=== PATIENT | female | born 1950 | race Caucasian/White ===

== ENCOUNTER 2019-04-14 13:16 | Emergency (ER) | payer MEDICARE, SELFPAY ==
[2019-04-14 13:33] VITALS: BP 117/87; PULSE 112; RESP 18; TEMP 37.2; O2SAT 98
--- NOTE | 2019-04-14 13:46 | ED.BACK ---
HPI - Back Pain/Injury General Chief Complaint: Back Pain/Injury Stated Complaint: back pain Source: patient Mode of arrival: ambulatory Limitations: no limitations History of Present Illness HPI Narrative: This is a 68-year-old female with chronic back pain currently on hydrocodone which offers her minimal relief, has some left lower lumbar back pain with some muscle tightness and tenderness with palpation on left lower lumbar spinal area with no dysuria no abdominal pain no nausea vomiting no diarrhea constipation no known injuries. MD elicited complaint: back pain Pertinent past history: prior back pain Onset (ago): hour(s) Timing: constant Pain scale (0-10): 6 Similar Symptoms Previously: Yes Quality: aching and spasming Location: lumbar spine and left lower back Radiation: none Exacerbating factors: movement Relieving factors: immobilization Context: while lifting, turning/twisting and bending Associated symptoms: denies other symptoms Related Data Home Medications Medication Instructions Recorded Confirmed alprazolam 0.5 mg PO BID 12/27/18 04/14/19 atorvastatin 20 mg PO DAILY 12/27/18 04/14/19 hydrocodone-acetaminophen 10.325 tablet PO QID 12/27/18 04/14/19 metoprolol tartrate 25 mg PO DAILY 12/27/18 04/14/19 aspirin [Aspir-81] 81 mg PO DAILY 04/14/19 04/14/19 Allergies Allergy/AdvReac Type Severity Reaction Status Date / Time No Known Allergies Allergy Verified 12/27/18 16:59 Review of Systems Review of Systems: All systems reviewed & are unremarkable except as noted in HPI and below PMFSH Past Medical History Medical History Anxiety HTN (hypertension) Surgical History Surgical History H/O: hysterectomy Social History Social History Smoking packs per day: 1 Smoking cigarettes per day: 20.0 Years smoked: 50 Smoking pack-years: 50.00 Exam Const: General: no acute distress and alert Orientation/consciousness: patient oriented x3 HENMT: Head: normal to inspection Eyes: Conjunctivae: conjunctivae normal Pupils: Equal, round and reactive pupils present Neck: Neck: normal visual inspection Chest: Chest palpation & inspection: normal inspection of the chest Resp: Effort & Inspection: normal respiratory effort Cardio: Rhythm: regular rhythm : General: Yes no CVA tenderness Skin: General skin exam: normal color Neuro: General: patient oriented x3 Psych: Mental Status: mental status grossly normal Course Vital Signs Vital signs: Vital Signs Temperature 37.2 C 04/14/19 13:33 Pulse Rate 112 H 04/14/19 13:33 Respiratory Rate 18 04/14/19 13:33 Blood Pressure 117/87 04/14/19 13:33 Pulse Oximetry 98 04/14/19 13:33 Temperature 37.2 C 04/14/19 13:33 Pulse Rate 112 H 04/14/19 13:33 Respiratory Rate 18 04/14/19 13:33 Blood Pressure 117/87 04/14/19 13:33 Pulse Oximetry 98 04/14/19 13:33 Discharge Plan Discharge Clinical Impression: Strain of lumbar region Qualifiers: Encounter type: initial encounter Qualified Code(s): S39.012A - Strain of muscle, fascia and tendon of lower back, initial encounter Condition: Stable Instructions: Acute Low Back Pain (ED), Back Pain (ED) Additional Instructions: Take medicine as prescribed and if symptoms persist for more than a week should follow with primary care physician for further evaluation and treatment. Prescriptions: New prednisone 20 mg tablet 20 mg PO DAILY Qty: 7 RF: 0 cyclobenzaprine 5 mg tablet 5 mg PO TID Qty: 21 RF: 0 No Action atorvastatin 20 mg tablet 20 mg PO DAILY RF: 0 hydrocodone-acetaminophen 10-325 mg tablet 10.325 tablet PO QID RF: 0 alprazolam 0.5 mg tablet 0.5 mg PO BID RF: 0 metoprolol tartrate 25 mg tablet 25 mg PO DAILY RF: 0 aspirin [Aspir-81] 81 m
[2019-04-14] MEDS: KETOROLAC (*BKC) 60 MG/2 ML VIAL IM (13:55)
== END 2019-04-14 14:20 | disposition home or self-care (01) ==
PROVIDERS: Emergency Provider Emergency Medicine; PCP Internal Medicine
DX: S39.012A Strain of muscle, fascia and tendon of lower back, initial encounter (principal); I10 Essential (primary) hypertension; F17.200 Nicotine dependence, unspecified, uncomplicated
CPT/HCPCS: 96372; 99283; J1885

== ENCOUNTER 2019-06-20 08:41 | Outpatient (CLI) | payer MEDICARE, SELFPAY ==
--- NOTE | ~2019-06-20 | US_ITS ---
EXAMINATION: US retroperitoneal comp DATE: 06/20/2019 09:16 INDICATION: Worsening renal function TECHNIQUE: Multiple grayscale and Doppler ultrasound images of the kidneys were obtained. COMPARISON: CT selected 15 port two FINDINGS: The right kidney measures 8.3 x 4.4 x 3.7 cm. The left kidney measures 8.9 x 4.9 x 4.5 cm a nd contains cysts measuring up to 6 mm. The kidneys demonstrate normal parenchymal echogenicity. Ther e is no hydronephrosis. A small diverticulum is noted at the right posterolateral aspect of the bladd er. The bladder is otherwise normal. IMPRESSION: 1. Mild renal atrophy. 2. Small bladder diverticulum. Reviewed, dictated and finalized at location A.
== END 2019-06-20 08:42 | disposition home or self-care (01) ==
LOC: CHSIMG 08:45
PROVIDERS: PCP Internal Medicine; Visit Provider Internal Medicine
DX: R94.4 Abnormal results of kidney function studies (principal)
CPT/HCPCS: 76770

== ENCOUNTER 2020-10-22 15:33 | Outpatient (CLI) | payer MEDICARE, SELFPAY ==
[2020-10-22 16:31] LABS: SARS-CoV-2 RNA PCR Positive (Negative)
== END 2020-10-22 15:34 | disposition home or self-care (01) ==
LOC: CHSLAB 15:37
PROVIDERS: PCP Internal Medicine; Visit Provider Internal Medicine
DX: U07.1 COVID-19 (principal)
CPT/HCPCS: C9803; U0003; U0005

== ENCOUNTER 2021-08-25 17:18 | Emergency (ER) | payer MEDICARE, SELFPAY ==
--- NOTE | ~2021-08-25 | XR_ITS ---
EXAM: XR wrist LT min 3V DATE: 08/25/2021 18:42 HISTORY: left wrist pain . COMPARISON: None available. FINDINGS: Decreased mineralization. No fracture or dislocation. No lytic or blastic lesion. Scattere d mild degenerative change. No erosion or periosteal change. Soft tissues within normal limits. IMPRESSION: No acute osseous finding in the left wrist. Reviewed, dictated and finalized at location K.
--- NOTE | ~2021-08-25 | CT_ITS ---
CT OF PELVIS EXAMINATION: CT pelvis wo con DATE: 08/25/2021 18:52 INDICATION: Fall, left hip pain. TECHNIQUE: Computed tomography (CT) of the pelvis was performed without intravenous contrast. Automat ed exposure control and iterative reconstruction technique were employed. The dose-length product was 168.39 mGy-cm. COMPARISON: None FINDINGS: Limitations: None Bones: Osteopenia. No osseous fracture. No dislocation. There are no erosive or destructive bony lesi ons. Severe degenerative disc disease and multilevel neural foraminal narrowing in the lower lumbar s pine. Soft Tissues:Atherosclerotic calcifications. The uterus is absent. Fluid: No significant fluid within the joint capsule or surrounding bursal spaces. IMPRESSION: No acute osseous finding in the pelvis. Reviewed, dictated and finalized at location K.
--- NOTE | ~2021-08-25 | XR_ITS ---
EXAM: XR knee LT 3V DATE: 08/25/2021 18:42 HISTORY: fall, knee pain . COMPARISON: 11/22/2009. FINDINGS: Decreased mineralization. No fracture or dislocation. No lytic or blastic lesion. Mild tri compartmental osteoarthritis. No erosion or periosteal change. Soft tissues within normal limits. Sma ll knee joint effusion. IMPRESSION: No acute osseous finding in the left knee. Reviewed, dictated and finalized at location K.
[2021-08-25 17:25] VITALS: BP 132/84; PULSE 74; RESP 20; TEMP 36.6; O2SAT 97
[2021-08-25] MEDS: KETOROLAC 30 MG/ML VIAL (*BKC) 15 MG IM (19:02)
--- NOTE | 2021-08-25 19:09 | ED.LOWEXIN ---
HPI - Extremity Injury (Lower) General Chief Complaint: Extremity Injury, Lower Stated Complaint: LT knee injury Time Seen by Provider: 08/25/21 17:22 Source: patient and RN notes reviewed Mode of arrival: ambulatory Limitations: no limitations History of Present Illness complaint: knee injury and other (left wrist pain) Injury: Left: knee Type of Injury: other (fall) Place: street/outdoors Severity: mild Relieving factors: nothing Exacerbating factors: weight bearing and movement Context: fall Associated symptoms: ambulatory Other symptoms: none Related Data Home Medications Medication Instructions Recorded Confirmed alprazolam 0.5 mg tablet 0.5 mg PO BID 12/27/18 08/25/21 atorvastatin 20 mg tablet 20 mg PO DAILY 12/27/18 08/25/21 hydrocodone 10 mg-acetaminophen 10 - 325 tablet PO QID 12/27/18 04/14/19 325 mg tablet metoprolol tartrate 25 mg tablet 25 mg PO DAILY 12/27/18 08/25/21 aspirin 81 mg tablet,delayed 81 mg PO DAILY 04/14/19 08/25/21 release (Aspir-) Allergies Allergy/AdvReac Type Severity Reaction Status Date / Time No Known Allergies Allergy Verified 12/27/18 16:59 Review of Systems Review of Systems: All systems reviewed & are unremarkable except as noted in HPI and below Constitutional: Constitutional: Reports no additional constitutional complaints Eyes: Eyes: Reports no additional eye complaints ENT: Reports system reviewed and no additional complaints, except as documented Cardiovascular: Cardiovascular: Reports no additional cardiovascular complaints Respiratory: Respiratory: Reports no additional respiratory complaints Gastrointestinal: Gastrointestinal: Reports no additional gastrointestinal complaints Genitourinary: Genitourinary: Reports no additional female genitourinary complaints Musculoskeletal: Musculoskeletal: Reports no additional musculoskeletal complaints and Reports arthralgias Integumentary/Breasts: Skin/Breast: Reports system reviewed and no additional complaints, except as docu Neurologic: Reports system reviewed and no additional complaints, except as documented Psychiatric: Psychiatric: Reports no additional psychiatric complaints Endocrine: Endocrine: Reports no additional endocrine complaints Hematologic/Lymphatic: Hematologic/Lymphatic: Reports no additional hematologic/lymphatic complaints Allergic/Immunologic: Allergic/Immunologic: Reports no additional allergic/immunologic complaints PMFSH Past Medical History Medical History Anxiety HTN (hypertension) Knee contusion Left wrist sprain Surgical History Surgical History H/O: hysterectomy Social History Social History Smoking packs per day: 1 Smoking cigarettes per day: 20.0 Years smoked: 50 Smoking pack-years: 50.00 Exam Const: General: healthy appearing and no acute distress Nutritional Appearance: well nourished Orientation/consciousness: patient oriented x3 Limitations: no limitations HENMT: Head: normal to inspection Ears: external ears normal, TM's normal bilaterally and EAC's normal General nose exam: Normal external nose present and Normal nares present Face and sinus: normal facial exam and sinuses nontender Mouth: Yes Normal oral and palatal mucosa present and Yes moist mucous membranes Teeth and gingiva: dentition normal Throat: posterior oropharynx normal Eyes: Conjunctivae: conjunctivae normal Pupils: Equal, round and reactive pupils present EOM: EOMs intact bilaterally Neck: Neck: normal visual inspection, no lymphadenopathy and no meningeal signs Chest: Chest palpation & inspection: normal inspection of the chest Resp: Effort & Inspection: normal respiratory effort Auscultation: clear to auscultation bilaterally Cardio: Rate: regular rate Rhythm: regular rhythm GI: GI Palp: Yes So
--- NOTE | 2021-08-25 19:12 | PC.NURSE ---
report to GENESIS rawls. no questions. awaiting xray reports.
[2021-08-25 19:26] VITALS: BP 125/86; PULSE 78; RESP 20; TEMP 36.2; O2SAT 98
--- NOTE | 2021-08-25 19:36 | PC.NURSE ---
pt declined wrist ekaterina wrap
== END 2021-08-25 19:22 | disposition home or self-care (01) ==
PROVIDERS: Emergency Provider Emergency Medicine; PCP Internal Medicine
DX: S80.02XA Contusion of left knee, initial encounter (principal); S63.502A Unspecified sprain of left wrist, initial encounter; I10 Essential (primary) hypertension; F41.9 Anxiety disorder, unspecified; F17.210 Nicotine dependence, cigarettes, uncomplicated; W19.XXXA Unspecified fall, initial encounter
CPT/HCPCS: 72192; 73110; 73562; 96372; 99284; J1885

== ENCOUNTER 2021-09-19 14:24 | Outpatient (CLI) | payer MEDICARE, SELFPAY ==
[2021-09-19 14:38] LABS: Add Urine Microscopic? YES; Appearance Urine Clear (Clear); Bilirubin Urine Negative (Negative); Blood Urine 1+ (Negative); Color Urine Light Yellow (Yellow); Glucose Urine UA Negative (Negative); Ketones Urine Negative (Negative); Leukocyte Esterase Ur Trace (Negative); Nitrate Urine Negative (Negative); Protein Urine Negative (Negative); Specific Grav Ur <= 1.005 (1.010-1.020); Urobilinogen Urine 0.2 mg/dL (0.2-1.0)
[2021-09-19 14:47] LABS: Bacteria Urine 1+ /hpf; RBC Urine 0-2 /hpf (0-2); Squamous Epithelial Cell Urine Few /hpf (Few)
== END 2021-09-19 14:25 | disposition home or self-care (01) ==
PROVIDERS: PCP Internal Medicine; Visit Provider Internal Medicine
DX: N39.0 Urinary tract infection, site not specified (principal)
CPT/HCPCS: 81001; 87077; 87086; 87088; 87186

== ENCOUNTER 2021-09-24 12:24 | Outpatient (CLI) | payer MEDICARE, SELFPAY ==
--- NOTE | ~2021-09-24 | MM_ITS ---
EXAMINATION: MM screening javier BI w yaquelin HISTORY: Screening mammogram TECHNIQUE: Craniocaudal and mediolateral oblique 3-D tomosynthesis images were obtained and synthetic 2-D images were generated. CAD analysis was submitted and interpreted. COMPARISON: 11/22/2013 bilateral screening mammogram examination BREAST PARENCHYMAL COMPOSITION: There are scattered areas of fibroglandular density. FINDINGS: Occasional benign calcifications. There is no evidence of suspicious mass, calcification, o r architectural distortion to suggest malignancy in either breast. There has been no suspicious inter anette change. IMPRESSION: 1. No mammographic evidence of malignancy. 2. Recommend routine screening mammography in one year. BI-RADS Category 2: Benign finding(s). Reviewed, dictated and finalized at location A.
--- NOTE | ~2021-09-24 | DEXA_ITS ---
Bone Density Report Name: SATHISH KING Age: 71 Sex: Female Ethnicity: White Date of : 1950 Indication: postmenopausal; screening for osteoporosis; height loss; prior fracture; hysterectomy; rheumatoid arthritis; Referring Provider: Perry Ybarra Study: Bone densitometry was performed. Exam Date: September 24, 2021 Accession number: [id number] Bone Density: Region BMD T-score Z-score Classification AP Spine(L1, L2, L3) 0.852 -1.5 0.7 Osteopenia Femoral Neck (Left) 0.639 -1.9 0.0 Osteopenia Total Hip (Left) 0.718 -1.8 -0.2 Osteopenia Femoral Neck (Right) 0.632 -2.0 0.0 Osteopenia Total Hip (Right) 0.652 -2.4 -0.8 Osteopenia Femoral Neck Mean 0.635 -1.9 0.0 Osteopenia Total Hip Mean 0.685 -2.1 -0.5 Osteopenia World Health Organization criteria for BMD impression classify patients as: Normal (T-score at or above -1.0), Osteopenia (T-score between -1.0 and -2.5), or Osteoporosis (T-score at or below -2.5). 10-year Fracture Risk(1): Major Osteoporotic Fracture 24% Hip Fracture 8.4% Reported Risk Factors: [place] (), Neck BMD=0.632, BMI=22.3, previous fracture, smoking, rheumatoid arthritis (1) FRAX(R) Version 3.08. Fracture probability calculated for an untreated patient. Fracture probability may be lower if the patient has received treatment. Clinical Information Provided by Patient: Has had a low trauma fracture Smokes Has rheumatoid arthritis Has used the following medications: Vitamin D, Calcium Has the following medical conditions: Hysterectomy Patient maximum height was 67 Menopause Age: 36 Drinks caffeinated beverages Onset of menses at age 16 Number of children 2 Impression: The patient has low bone mass, based on the Right Total Hip T-score. The patient has risk factors, including: smoking, previous fracture. Discussion: BONE DENSITY IS LOW AT ONE OR MORE SKELETAL SITES. This patient's lowest T-score is low at one or more skeletal sites. It meets the World Health Organization's (WHO) criteria for ?low bone mass? (T-score between -1.0 and -2.5). The patient's 10-year risk of fracture as calculated by FRAX is less than the threshold where pharmacological therapy is recommended by the National Osteoporosis Foundation (NOF). However, all treatment decisions require clinical judgment and consideration of individual patient factors, including patient preferences, comorbidities, previous drug use, risk factors not captured in the FRAX model (e.g., frailty, falls, vitamin D deficiency, increased bone turnover, interval significant decline in bone density) and possible under or overestimation of fracture risk by FRAX. The patient should follow a healthful lifestyle (good nutrition with adequate calcium and vitamin D, and appropriate weight-bearing exe
== END 2021-09-24 12:25 | disposition home or self-care (01) ==
LOC: CHSIMG 12:26
PROVIDERS: PCP Internal Medicine; Visit Provider Internal Medicine
DX: M81.0 Age-related osteoporosis without current pathological fracture (principal); Z12.31 Encounter for screening mammogram for malignant neoplasm of breast
CPT/HCPCS: 77063; 77067; 77080

== ENCOUNTER 2022-06-23 14:18 | Outpatient (CLI) | payer MEDICARE, SELFPAY ==
--- NOTE | ~2022-06-23 | CT_ITS ---
EXAMINATION: CT BRAIN W/O DATE: 06/23/2022 14:40 INDICATION: Left frontal lobe headache TECHNIQUE: Computed tomography (CT) of the head was performed without intravenous contrast. The dose- length product was 605.33 mGy-cm. CT dated 12/27/2018 COMPARISON: No prior studies for comparison. FINDINGS: Normal brain parenchymal volume for age. Normal montez-white differentiation. No acute intrac ranial hemorrhage, infarction, mass or mass effect. No ventriculomegaly or midline shift. Midline sagittal images demonstrate a normal corpus callosum, c raniovertebral junction and sella turcica. Basilar cisterns are patent. There is mucosal thickening of the left maxillary, sphenoid and left ethmoid sinus. Mastoids are pneu matized. No depressed skull fractures. IMPRESSION: 1. No acute intracranial abnormality. 2: Moderate sinusitis. Reviewed, dictated and finalized at location L.
== END 2022-06-23 14:19 | disposition home or self-care (01) ==
LOC: CHSIMG 14:22
PROVIDERS: PCP Internal Medicine; Visit Provider Nurse Practitioner Family
DX: H53.8 Other visual disturbances (principal); R51.9 Headache, unspecified; J32.9 Chronic sinusitis, unspecified
CPT/HCPCS: 70450

== ENCOUNTER 2022-07-06 14:02 | Emergency (ER) | payer MEDICARE, SELFPAY ==
--- NOTE | ~2022-07-06 | CT_ITS ---
EXAMINATION: CT lumbar spine wo con DATE: 07/06/2022 14:41 INDICATION: 3 days of low back pain and sciatica TECHNIQUE: Computed tomography (CT) of the lumbar spine was performed without intravenous contrast. A utomated exposure control and iterative reconstruction technique were employed. The dose-length produ ct was 700.43 mGy-cm. COMPARISON: MRI dated 10/25/2010 FINDINGS: 15 degrees lumbar levoscoliosis. Sagittal alignment is normal. Chronic compression fracture with 20% anterior vertebral body height loss and superimposed endplate Schmorl's node at L2. Additional unchan ged mild compression fracture with 10% right anterior vertebral body height loss at L3. Small Schmorl 's node along the inferior endplate of T11. Chronic L3 bone island. Mild disc height loss at T10-T11 through T12-L1 and mild left-sided disc height loss at L1-L2. Schmorl's node. Mild to moderate right- sided predominant disc height loss at T12-L3 and L3-L4. Moderate disc height loss at L4-L5, moderate to severe left-sided predominant disc height loss at L5-S1. Paravertebral soft tissues are unremarkab le. The following disc levels are specifically discussed: T11-T12: Disc is mildly bulging with superimposed chronic left foraminal zone disc extrusion with dis c material extending 5 mm cephalad to the level of the inferior endplate of T11. There is mild bilate ral facet joint osteoarthritis. There is mild left neural foraminal stenosis. There is mild central c anal stenosis. T12-L1: The disc does not extend beyond the endplate margin. There is mild bilateral facet joint oste oarthritis. There is no neural foraminal stenosis. There is no central canal stenosis. L1-L2: Disc is bulging. There is mild left and minimal right facet joint osteoarthritis. There is mil d bilateral neural foraminal stenosis. There is mild central canal stenosis. L2-L3: Disc is bulging. There is minimal bilateral facet joint osteoarthritis. There is mild bilatera l neural foraminal stenosis. There is mild to moderate central canal stenosis. L3-L4: Disc is bulging. There is mild bilateral facet joint osteoarthritis. There is mild bilateral n eural foraminal stenosis. There is mild central canal stenosis. L4-L5: Disc is bulging. There is mild right and moderate left facet joint osteoarthritis. There is le ft and mild to moderate right neural foraminal stenosis. There is mild to moderate central canal sten osis with prior left posterior decompression with left hemilaminotomy. L5-S1: Disc is bulging. There is mild right and moderate left facet joint osteoarthritis. There is mo derate to severe left neural foraminal stenosis. There is mild central canal stenosis with additional prior left posterior decompression with left hemilaminotomy. IMPRESSION: 1. 15 degrees lumbar levoscoliosis with moderate spondylosis and change of likely prior left L4-L5 an d L5-S1 hemilaminotomies. Groin 2. Chronic L3 and L4 compression fractures. No acute osseous abnormality. Reviewed, dictated and finalized at location A. IMPRESSION: 1. 15 degrees lumbar levoscoliosis with moderate spondylosis and change of like ly prior left L4-L5 and L5-S1 hemilaminotomies. Groin 2. Chronic L3 and L4 compression fractures. No acute osseous abnormality.
[2022-07-06 14:02] VITALS: BP 137/87; PULSE 79; RESP 20; TEMP 36.7; O2SAT 99
[2022-07-06 14:22] LABS: Appearance Urine Clear (Clear); Bilirubin Urine Negative (Negative); Blood Urine 1+ (Negative); Color Urine Light Yellow (Yellow); Glucose Urine UA Negative (Negative); Ketones Urine Negative (Negative); Leukocyte Esterase Ur 2+ (Negative); Nitrate Urine Negative (Negative); Protein Urine Negative (Negative); Specific Grav Ur <= 1.005 (1.010-1.020); Urobilinogen Urine 0.2 mg/dL (0.2-1.0)
--- NOTE | 2022-07-06 14:23 | ED.GENADULT ---
HPI - General Adult General Chief complaint: Back Pain/Injury Stated complaint: back pain Time Seen by Provider: 07/06/22 14:13 History of Present Illness HPI narrative: An is a 72F with a PMH of chronic back pain s/p multiple surgeries that presented to the ED with worsening back pain. It gradually came on yesterday and has become much worse. There was no fall or trauma. There is no paralysis, numbness, or loss of bowel/bladder control. The pain is in her bilateral low back and radiates down her left leg. Related Data Home Medications Medication Instructions Recorded Confirmed alprazolam 0.5 mg tablet 0.5 mg PO BID 12/27/18 07/06/22 atorvastatin 20 mg tablet 20 mg PO DAILY 12/27/18 07/06/22 hydrocodone 10 mg-acetaminophen 10 - 325 tablet PO QID 12/27/18 07/06/22 325 mg tablet metoprolol tartrate 25 mg tablet 25 mg PO DAILY 12/27/18 07/06/22 aspirin 81 mg tablet,delayed 81 mg PO DAILY 04/14/19 07/06/22 release (Aspir-) alendronate 70 mg tablet 70 mg PO WEEKLY 07/06/22 07/06/22 Allergies Allergy/AdvReac Type Severity Reaction Status Date / Time No Known Allergies Allergy Verified 07/06/22 14:05 Review of Systems Review of Systems: All systems reviewed & are unremarkable except as noted in HPI and below PMFSH Past Medical History Medical History Anxiety HTN (hypertension) Knee contusion Left wrist sprain Surgical History Surgical History H/O: hysterectomy Social History Social History Smoking packs per day: 1 Smoking cigarettes per day: 20.0 Years smoked: 50 Smoking pack-years: 50.00 Exam Const: General: healthy appearing and no acute distress Nutritional Appearance: well nourished Orientation/consciousness: patient oriented x3 HENMT: Head: normal to inspection Ears: external ears normal Face/Nose/Sinus: Normal external nose present Eyes: Conjunctivae: conjunctivae normal Pupils: Equal, round and reactive pupils present EOM: EOMs intact bilaterally Neck: Neck: normal visual inspection Chest: Chest palpation & inspection: normal inspection of the chest Resp: Effort & Inspection: normal respiratory effort Cardio: Rate: regular rate GI: Inspection: non-distended Back/Spine/Pelvis: Other: midline lumbar scar. No TTP or midline tenderness Skin: General skin exam: normal color Rashes: no rashes Neuro: General: patient oriented x3 and moves all extremities Cranial nerves: Yes Nystagmus not present Other: 5/5 strength throughout the lower extremities Extrem: General: normal to inspection Psych: Mental Status: mental status grossly normal Course Course Emergency Course: EXAMINATION: CT lumbar spine wo con DATE: 07/06/2022 14:41 INDICATION: 3 days of low back pain and sciatica TECHNIQUE: Computed tomography (CT) of the lumbar spine was performed without intravenous contrast. Automated exposure control and iterative reconstruction technique were employed. The dose-length product was 700.43 mGy-cm. COMPARISON: MRI dated 10/25/2010 FINDINGS: 15 degrees lumbar levoscoliosis. Sagittal alignment is normal. Chronic compression fracture with 20% anterior vertebral body height loss and superimposed endplate Schmorl's node at L2. Additional unchanged mild compression fracture with 10% right anterior vertebral body height loss at L3. Small Schmorl's node along the inferior endplate of T11. Chronic L3 bone island. Mild disc height loss at T10-T11 through T12-L1 and mild left-sided disc height loss at L1-L2. Schmorl's node. Mild to moderate right-sided predominant disc height loss at T12-L3 and L3-L4. Moderate disc height loss at L4-L5, moderate to severe left-sided predominant disc height loss at L5-S1. Paravertebral soft tissues are unremarkable. The following disc levels are specifically discussed:
[2022-07-06 14:27] LABS: Add Urine Microscopic? YES; Squamous Epithelial Cell Urine Few /hpf (Few)
[2022-07-06 14:28] LABS: Bacteria Urine 1+ /hpf
[2022-07-06] MEDS: GABAPENTIN 300 MG CAPSULE PO (14:44)
[2022-07-06] MEDS: KETOROLAC 30 MG/ML VIAL (*BKC) IM (14:47)
[2022-07-06] MEDS: MORPHINE SULFATE (*CRX) 4 MG/ML INJ IM (14:48)
[2022-07-06 15:30] VITALS: BP 133/72; PULSE 72; RESP 20; TEMP 36.8; O2SAT 98
--- NOTE | 2022-07-06 15:34 | PC.NURSE ---
PT AMBULATORY WITH SLOW STEADY GAIT
== END 2022-07-06 15:35 | disposition home or self-care (01) ==
PROVIDERS: Emergency Provider Family Medicine; PCP Internal Medicine
DX: M54.50 Low back pain, unspecified (principal); M54.10 Radiculopathy, site unspecified; I10 Essential (primary) hypertension; F41.9 Anxiety disorder, unspecified; F17.210 Nicotine dependence, cigarettes, uncomplicated; Z79.82 Long term (current) use of aspirin; Z79.891 Long term (current) use of opiate analgesic
CPT/HCPCS: 72131; 81001; 96372; 99284; A9270; J1885; J2270

== ENCOUNTER 2022-07-08 11:20 | Outpatient (CLI) | payer MEDICARE, SELFPAY ==
--- NOTE | ~2022-07-08 | CT_ITS ---
EXAMINATION: CT abdomen pelvis wo/w con DATE: 07/08/2022 12:37 INDICATION: Hematuria. Low back pain. TECHNIQUE: Computed tomography (CT) of the abdomen and pelvis was performed without and with intraven ous contrast using a total of 130 mL Omnipaque-350 intravenous contrast with a double-bolus technique for simultaneous opacification of the renal parenchyma and renal collecting system. Automated exposu re control and iterative reconstruction technique were employed. The dose-length product was 728.08 m Gy-cm. COMPARISON: CT pelvis 08/25/2021 FINDINGS: The visualized portions of the lung bases demonstrate emphysema and minimal atelectasis. No pleural e ffusion. The heart size is normal. There are coronary artery calcifications. No pericardial effusion. The liver, gallbladder, spleen, pancreas, adrenal glands are normal. There are cysts in the kidneys measuring up to 10 mm on the right. There is no urolithiasis. The bladder is normal. There are no dil ated loops of bowel. The appendix is not visualized. There are no pathologically enlarged lymph nodes . There is no free intraperitoneal fluid. There is severe lower lumbar spondylosis. There is a benign bone island in L3 vertebral body. There are chronic compression fractures of L2 and L3. Lumbar levos coliosis is noted. IMPRESSION: 1. No etiology for hematuria. 2. Severe lower lumbar spondylosis. Reviewed, dictated and finalized at location A.
[2022-07-08 11:40] LABS: Basophils Absolute Auto 0.03 K/mm3 (0.00-0.10); Basophils Percent Auto 0.4 % (0.0-1.0); Eosinophils Absolute Auto 0.32 K/mm3 (0.02-0.50); Eosinophils Percent Auto 4.1 % (1.0-6.0); Hematocrit 40.1 % (35.0-42.0); Hemoglobin 12.8 g/dL (11.7-13.8); Immature Granulocyte Absolute 0.03 K/mm3 (0.00-0.00); Immature Granulocyte Percent A 0.4 % (0.0-0.0); Lymphocytes Absolute Auto 2.09 K/mm3 (1.10-4.50); Lymphocytes Percent Auto 26.6 % (18.0-42.0); Mean Corpuscular HGB Conc 31.9 g/dL (32.0-36.0); Mean Corpuscular Hemoglobin 30.8 pg (27.0-31.0); Mean Corpuscular Volume 96.4 fL (78.0-102.0); Mean Platelet Volume 10.1 fl (9.2-11.8); Monocytes Absolute Auto 0.48 K/mm3 (0.10-0.90); Monocytes Percent Auto 6.1 % (2.0-11.0); Neutrophils Absolute Auto 4.9 K/mm3 (1.7-7.2); Neutrophils Percent Auto 62.4 % (50.0-70.0); Platelet Count Result 235 K/mm3 (150-420); Red Blood Count 4.16 M/mm3 (4.20-5.40); Red Cell Distribution Width 13.2 % (11.6-14.4); White Blood Count 7.9 K/mm3 (4.8-10.8)
[2022-07-08 11:54] LABS: Alanine Aminotransferase 27 U/L (14-59); Albumin Level 3.5 g/dL (3.4-5.0); Alkaline Phosphatase 64 U/L (46-116); Amylase 94 U/L (25-115); Anion Gap 7 mmol/L (8-16); Aspartate Amino Transferase 28 U/L (15-37); Bilirubin,Total 0.4 mg/dL (0.00-1.00); Blood Urea Nitrogen 10 mg/dL (7-18); Calcium 8.8 mg/dL (8.5-10.1); Carbon Dioxide 28 mmol/L (21-32); Chloride 101 mmol/L (98-108); Estimated Glomerular Filt Rate 52; Glucose 88 mg/dL (70-99); Lipase 44 U/L (16-77); Osmolality Calculated 280 mOsm/kg (285-295); Potassium 4.7 mmol/L (3.5-5.1); Sodium 136 mmol/L (136-145); Total Protein 7.2 g/dL (6.4-8.2)
== END 2022-07-08 11:21 | disposition home or self-care (01) ==
PROVIDERS: PCP Internal Medicine; Visit Provider Nurse Practitioner Family
DX: R10.9 Unspecified abdominal pain (principal); R31.9 Hematuria, unspecified; M43.06 Spondylolysis, lumbar region
CPT/HCPCS: 36415; 74178; 80053; 82150; 83690; 85025; Q9967

== ENCOUNTER 2022-07-27 14:03 | Outpatient (RCR) | payer MEDICARE, SELFPAY ==
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
--- NOTE | 2022-07-27 15:30 | OPREHPOC ---
Outpatient Therapy Plan of Care This is a Multidisciplinary Plan of Care that may contain components documented by all disciplines (PT, OT, and ST.) PT Problem 1 PT Problem #1 Knowledge Deficit PT Goal 1 Goal 1. independent and compliant with HEP to improve tolerance for continued skilled PT and exercises Target Visit 6 PT Problem 2 PT Problem #2 Pain PT Goal 1 Goal 1. decrease pain at worst to 5/10 or less in the lower back and LE to improve quality of life and tolerance for continued skilled PT and exercsies. Target Visit 12 PT Problem 3 PT Problem #3 Impaired Range of Motion PT Goal 1 Goal 1. improve arom lumbar extension to 25 degrees or better 2. improve arom lumbar sidebending to 20 degrees or better bilat Target Visit 12 PT Problem 4 PT Problem #4 Impaired Strength PT Goal 1 Goal 1. improve core strength to hold PPT with supine hooklying double hip march 2. improve bilateral hip strength to 4+/5 or better 3. improve L knee strength to 5/5 overall Target Visit 12 PT Problem 5 PT Problem #5 Impaired Functional Mobil PT Goal 1 Goal 1. oswestry to display less than 35% functional deficits 2. patient to squat and lift 20lbs with safe body mechanics and no increased pain 3. patient to stand for 2 hours without increased symptoms Target Visit 12
== END 2022-07-29 11:05 | disposition home or self-care (01) ==
LOC: CHSPT 14:03
PROVIDERS: PCP Internal Medicine; Visit Provider Internal Medicine
DX: M47.817 Spondylosis without myelopathy or radiculopathy, lumbosacral region (principal); M54.32 Sciatica, left side
CPT/HCPCS: 97014; 97110; 97140; 97161; G0283

== ENCOUNTER 2022-12-17 09:34 | Outpatient (CLI) | payer MEDICARE, SELFPAY ==
[2022-12-17 10:11] LABS: Potassium 4.4 mmol/L (3.5-5.1)
== END 2022-12-17 09:35 | disposition home or self-care (01) ==
LOC: CHSLAB 09:37
PROVIDERS: PCP Internal Medicine; Visit Provider Internal Medicine
DX: E87.5 Hyperkalemia (principal)
CPT/HCPCS: 36415; 84132

== ENCOUNTER 2023-03-12 13:33 | Outpatient (CLI) | payer MEDICARE, SELFPAY ==
--- NOTE | ~2023-03-12 | XR_ITS ---
XR thoracic spine 3V DATE: 03/12/2023 14:00 INDICATION: Fall. Back pain. TECHNIQUE: AP, lateral, swimmer views COMPARISON: None FINDINGS: Diffuse osteopenia. Prominent degenerative disc disease noted at C5-6 and C6-7. Mild thoracic scoliosis. No fracture or dislocation or bone destruction of the thoracic spine. The th oracic pedicles are intact. There is minimal degenerative spurring of the thoracic spine. No paraspin al soft tissue thickening. IMPRESSION: Osteopenia Prominent degenerative disc disease at C5-6 and C6-7 Mild thoracic scoliosis Minimal degenerative spurring of the thoracic spine Reviewed, dictated and finalized at location B. STRIAL CHEMICALS SUPERVISOR
--- NOTE | ~2023-03-12 | XR_ITS ---
XR lumbar spine 2-3V DATE: 03/12/2023 14:00 INDICATION: Fall. Back pain. TECHNIQUE: AP, lateral, coned lateral lumbosacral views COMPARISON: 07/16/2022 MR lumbar spine 07/06/2022 CT lumbar spine FINDINGS: There is 18 degrees levoscoliosis measured from L1 to L4. There is diffuse osteopenia. Chronic stable prominent compression deformity of L2 and mild compression deformity of L3, stable in appearance since 07/06/2022. No new fracture or bone destruction is detected. No spondylolisthesis is noted. The lumbar pedicles are intact. There is multilevel degenerative disc disease, including moderate to moderately severe degenerative d isease on the right at L1-2 and L2-3 and at L5-S1 on the left. The sacroiliac joints appear normal. Prominent abdominal aortic and iliac arterial calcification; no evidence of abdominal aortic aneurysm is detected. IMPRESSION: Chronic L2-L3 compression fracture deformities, relatively stable since 07/06/2022 Osteopenia Levoscoliosis Multilevel degenerative disc disease Reviewed, dictated and finalized at location B. OTIC AIDE IMPRESSION: Chronic L2-L3 compression fracture deformities, relatively stable s santiago 07/06/2022 Osteopenia Levoscoliosis Multilevel degenerative disc disease
== END 2023-03-12 13:34 | disposition home or self-care (01) ==
LOC: CHSIMG 13:36
PROVIDERS: PCP Internal Medicine; Visit Provider Internal Medicine
DX: M54.50 Low back pain, unspecified (principal); M48.56XA Collapsed vertebra, not elsewhere classified, lumbar region, initial encounter for fracture; M85.88 Other specified disorders of bone density and structure, other site; M41.86 Other forms of scoliosis, lumbar region; M51.36 Other intervertebral disc degeneration, lumbar region; M50.322 Other cervical disc degeneration at C5-C6 level; M41.84 Other forms of scoliosis, thoracic region
CPT/HCPCS: 72072; 72100

== ENCOUNTER 2024-08-30 14:10 | Outpatient (CLI) | payer MEDICARE, SELFPAY ==
--- NOTE | ~2024-08-30 | XR_ITS ---
CHEST RADIOGRAPH, PA AND LATERAL CLINICAL HISTORY: PERIPHERAL NEUROPATHY . COMPARISON: 06/09/2016 TECHNIQUE: PA and lateral views of the chest. FINDINGS The cardiomediastinal silhouette is unremarkable. Blunting of the bilateral costophrenic sulci, left greater than right suggesting small bilateral pleu ral effusions. Biapical scarring. The remainder of the lungs are clear. IMPRESSION: Small bilateral pleural effusions, left greater than right. Reviewed, dictated and finalized at location A.
--- OUTSIDE RECORDS SUMMARY | 2024-08-30 14:20 | XMS_ITS | Patient Health Record ---
Author Organization [facility] Address [address] [place], [place] [id number] Care Team Providers Care Tobacco Scrap Sifter Name Role Phone RUDOLPH DIANE Unavailable [phone] Tate Perry Unavailable Unavailable Reason For Referral No Information Plan Of Treatment No Information Insurance Providers Payer Name Payer Address Payer Phone Subscriber Number Group Number Insured Name Patient Relationship to Insured Coverage Start Date Coverage End Date Medicare Part B [place] [address] [place] [address] [id number] SATHISH PRYOR Self - patient is the insured [facility] Insurance [address] [address] [place] [address] [id number] SATHISH PRYOR Self - patient is the insured [facility] [address] [place], [place] [id number] SATHISH PRYOR Self - patient is the insured
[2024-08-30 14:24] LABS: Hematocrit 40.3 % (35.0-42.0); Hemoglobin 13.0 g/dL (11.7-13.8); Mean Corpuscular HGB Conc 32.3 g/dL (32-36); Mean Corpuscular Hemoglobin 30.9 pg (27.0-31.0); Mean Corpuscular Volume 95.7 fL (78.0-102.0); Platelet Count Result 264 K/mm3 (150-420); Red Blood Count 4.21 M/mm3 (4.20-5.40); White Blood Count 10.2 K/mm3 (4.8-10.8)
[2024-08-30 14:27] LABS: Add Urine Microscopic? YES; Appearance Urine Clear (Clear); Glucose Urine UA Negative (Negative); Leukocyte Esterase Ur Negative (Negative); Nitrate Urine Positive (Negative); Specific Grav Ur >= 1.030 (1.010-1.020)
[2024-08-30 14:59] LABS: Alanine Aminotransferase 19 U/L (6-35); Albumin Level 4.4 g/dL (3.5-5.1); Alkaline Phosphatase 54 U/L (38-126); Anion Gap 7 mmol/L (4-12); Aspartate Amino Transferase 32 U/L (14-36); Bilirubin,Total 0.6 mg/dL (0.2-1.3); Blood Urea Nitrogen 14 mg/dL (7-17); CRP < 0.5 mg/dL (<1.0); Calcium 9.3 mg/dL (8.4-10.2); Carbon Dioxide 24 mmol/L (22-30); Chloride 109 mmol/L (98-107); Cholesterol 170 mg/dL (0-200); Estimated Glomerular Filt Rate 51; Glucose 92 mg/dL (65-110); HDL Direct 77 mg/dL; Osmolality Calculated 290 mOsm/kg (285-295); Potassium 5.1 mmol/L (3.4-5.0); Sodium 140 mmol/L (137-145); Total Protein 7.1 g/dL (6.3-8.2); Triglycerides 114 mg/dL (<150)
== END 2024-08-30 14:11 | disposition home or self-care (01) ==
PROVIDERS: PCP Internal Medicine; Visit Provider Internal Medicine
DX: I25.10 Atherosclerotic heart disease of native coronary artery without angina pectoris (principal); I73.9 Peripheral vascular disease, unspecified; J44.9 Chronic obstructive pulmonary disease, unspecified; J90 Pleural effusion, not elsewhere classified
CPT/HCPCS: 36415; 71046; 80053; 80061; 81001; 83921; 85027; 86140

== ENCOUNTER 2024-09-25 10:00 | Outpatient (CLI) | payer MEDICARE, SELFPAY ==
--- NOTE | ~2024-09-25 | CT_ITS ---
Clinical Indication: Pleural effusion CT Scan of the Chest with Contrast: Technique: Contiguous sections were acquired throughout the chest after intravenous administration of 100 cc of Omnipaque 350. Dose reduction technique was used on this scan by utilizing automated expos ure control and iterative reconstruction technique. The dose-length product (DLP) was 159.68 mGy-cm. Findings: There is no evidence of any significant mediastinal, hilar or axillary lymphadenopathy. There is no f illing defect in the pulmonary arterial tree to suggest pulmonary embolus. There is no evidence of ao rtic dissection or aneurysm. There is no evidence of pleural or pericardial effusion. There is mild biapical scarring. There is advanced emphysema of the lungs. Images through the upper abdomen reveal no abnormalities. Chronic L2 compression deformity present. Impression: No evidence of pulmonary embolus, aortic dissection, or aortic aneurysm. Advanced emphysema. No pleural effusions. Reviewed, dictated and finalized at [facility]. Impression: No evidence of pulmonary embolus, aortic dissection, or aortic aneurysm. Advanced emphysema. No pleural effusions.
[2024-09-25 10:37] LABS: Alanine Aminotransferase 19 U/L (6-35); Albumin Level 4.5 g/dL (3.5-5.1); Alkaline Phosphatase 49 U/L (38-126); Anion Gap 6 mmol/L (4-12); Aspartate Amino Transferase 33 U/L (14-36); Bilirubin,Total 0.6 mg/dL (0.2-1.3); Blood Urea Nitrogen 21 mg/dL (7-17); Calcium 9.9 mg/dL (8.4-10.2); Carbon Dioxide 28 mmol/L (22-30); Chloride 107 mmol/L (98-107); Estimated Glomerular Filt Rate 36; Glucose 99 mg/dL (65-110); Osmolality Calculated 295 mOsm/kg (285-295); Potassium 5.8 mmol/L (3.4-5.0); Sodium 141 mmol/L (137-145); Total Protein 7.5 g/dL (6.3-8.2)
[2024-09-25 10:46] LABS: NT Pro B Type Natriuretic Pept 462 pg/mL (19.9-100)
--- OUTSIDE RECORDS SUMMARY | 2024-09-25 11:00 | XMS_ITS | Patient Health Record ---
Author Organization [facility] Address [address] [place], [place] [id number] Care Team Providers Care Director Of Procurement Name Role Phone RUDOLPH DIANE Unavailable [phone] Tate Perry Unavailable Unavailable Reason For Referral No Information Plan Of Treatment No Information Insurance Providers Payer Name Payer Address Payer Phone Subscriber Number Group Number Insured Name Patient Relationship to Insured Coverage Start Date Coverage End Date Medicare Part B [place] [address] [place] [address] [id number] SATHISH PRYOR Self - patient is the insured [facility] Insurance [address] [address] [place] [address] [id number] SATHISH PRYOR Self - patient is the insured [facility] [address] [place], [place] [id number] SATHISH PRYOR Self - patient is the insured
== END 2024-09-25 10:01 | disposition home or self-care (01) ==
LOC: CHSIMG 10:03
PROVIDERS: PCP Internal Medicine; Visit Provider Internal Medicine
DX: I73.9 Peripheral vascular disease, unspecified (principal); J90 Pleural effusion, not elsewhere classified; R06.00 Dyspnea, unspecified
CPT/HCPCS: 36415; 71260; 80053; 83880; Q9967

== ENCOUNTER 2024-10-16 15:03 | Outpatient (CLI) | payer MEDICARE, SELFPAY ==
--- OUTSIDE RECORDS SUMMARY | 2024-10-16 15:09 | XMS_ITS | Clinical Summary ---
Author Organization [facility] Address [address] [place] [address] Care Team Providers Care Carpet Layer Helper Name Role Phone Perry Ybarra MD Unavailable Davy Diamond MD Unavailable [phone] Perry Ybarra MD Primary Care Provider [phone] Allergies No known active allergies Medications aspirin 81 MG chewable tablet Chew 81 mg by mouth daily. 05/10/2009 Active calcium carb-cholecalci ferol (CALTRATE 600+D) 600-800 MG-UNIT per tablet Take 2 tablets by mouth daily. 05/10/2009 Active ALPRAZolam 0.5 MG tablet Take 0.5 mg by mouth nightly. Active omeprazole 40 MG capsule Take 40 mg by mouth daily as needed (heartburn). Active Multiple Vitamins-Minera ls (CENTRUM ADULTS OR) Take 1 tablet by mouth daily. Active atorvastatin 20 MG tablet Take 20 mg by mouth daily. 07/09/2018 Active hydrocodone-ekaterina taminophen 10-325 MG tablet Take 1 tablet by mouth every 6 (six) hours as needed for Pain. 07/09/2018 Active metoprolol tartrate 25 MG tablet Take 25 mg by mouth daily. 07/09/2018 Active ALPRAZolam 0.5 MG tablet Take 0.25 mg by mouth 2 (two) times a day. Am and afternoon. Active Active Problems Problem Noted Date Diagnosed Date Acute headache 12/27/2018 PUD (peptic ulcer disease) Insomnia Hyperlipidemia Depression Chronic back pain CAD (coronary artery disease) Anxiety Adjustment disorder Encounters Date Type Department Care Team Description 07/27/2024 9:20 AM CDT Office Visit [facility] - [address], [address] [place] [address] Damon Grimm, DPM Plantar Wart (Pt is here for a Lt foot plantars wart. She states 15 yrs ago she saw a Dr who dug it out. She states he did not get the seed so he put acid in it. She states she started to feel it again a couple of years ago. She then saw another dr. And he also cut it out but did not get the seed either. Pt is not diabetic./JRR) 07/27/2024 Travel from Last 3 Months Family History Medical History Relation Comments Hypertension Other 1 Anxiety Other 2 Heart Disease Other 2 Relation Status Comments Other 1 Other 2 Social History Tobacco Use Types Packs/Day Years Used Date Smoking Tobacco: Every Day Cigarettes Smokeless Tobacco: Never Tobacco Cessation:Ready to Q uit: No; Counseling Given: Yes Alcohol Use Standard Drinks/Week Comments No 0 (1 standard drink = 0.6 oz pur e alcohol) AUDIT-C Answer Date Recorded Frequency of Alcohol Consumption Never 07/29/2018 Average Number of Drinks Not on file 019 Frequency of Binge Drinking Not on file 07/10 Comments No Sex and Gender Information Value Date Recorded Sex Assigned at Not on file Legal Sex Female 1:14 PM CDT Gender Identity Not on file Sexual Orientation Not on file Last Filed Vital Signs Vital Sign Reading Time Taken Comments Blood Pressure 139/65 07/27/2024 9:20 AM CDT Pulse 67 07/27/2024 9:20 AM CDT Temperature 36.8 C (98.2 F) 12/29/2018 8:41 AM MAGNETIC TESTING TECHNICIAN Respiratory Rate 18 12/29/2018 8:41 AM MAGNETIC TESTING TECHNICIAN Oxygen Saturation 95% 07/27/2024 9:20 AM CDT Inhaled Oxygen Concentration - - Weight 55.5 kg (122 lb 4.8 oz) 07/27/2024 9:20 A M CDT Height 167.6 cm (5' 6) 12/28/2018 1:00 AM MAGNETIC TESTING TECHNICIAN Body Mass Index 19.74 12/28/2018 1:00 AM MAGNETIC TESTING TECHNICIAN Plan of Treatment Health Maintenance Due Date Last Done Comments ASCVD Statin 1950 Colorectal Cancer Screening Colonoscopy (10 Years) 1950 Hepatitis C 06/26/1967 Zoster Vaccines (2 of 3) 12/30/2013 11/04/2013 Annual Medicare Wellness Visit 2014 Dexa Scan (General) 2014 ASCVD LDL 12/29/2019 12/28/2018, 11/22/2004 PHQ-2 (Physician [place]) 02/09/2024 COVID-19 Vaccine ( season) 2024 12/07/2023, 12/11/2022, 07/16/2022, Additional history exists DTaP, Tdap and Td Vaccines (2 - Td or Tdap) 09/09/2032 09/09/2022 Pneumococcal Vaccine: 50+ Years Completed 11/25/2016, 11/23/2016, 12/23/2015, Additional history exists RSV Immunization or 60+ Years Completed 12/11/2022 Meningococcal B Vaccine Aged Out No l onger eligible based on patient's age to complete this topic Meningococcal Vaccine Aged Out No jean-claude ebony eligible based on patient's age to complete this topic RSV Immunizations Under 20 Months Aged Out No longer eligible based on patient's age to complete this topic Procedures Procedure Name Priority Date/Time Associated Diagnosis Comments LIPID PANEL Routine 12/28/2018 5:09 AM MAGNETIC TESTING TECHNICIAN from Last 3 Months or Most Recently Relevant to Health Maintenance Results * LIPID PANEL (12/28/2018 5:09 AM MAGNETIC TESTING TECHNICIAN) CHOLESTEROL 188 MG/DL 12/28/2018 5:04 PM MAGNETIC TESTING TECHNICIAN [facility] Comment:DESIRABLE: <200 TRIGLYCERIDES 85 MG/DL 12/28/2018 5:04 PM MAGNETIC TESTING TECHNICIAN [facility] Comment:<150 NORMAL HDL 73 >49 MG/DL 12/28/2018 5:04 PM MAGNETIC TESTING TECHNICIAN [facility] LDL (CALCULATED) 98 MG/DL 12/29/19 5:04 PM [facility] Comment:<100 OPTIMAL VLDL CALCULATION 17 MG/DL 12/29/19 5:04 PM [facility] Comment:REFERENCE RANGE NOT ESTABLISHED CHOL/HDL RATIO 2.6 12/28/2018 5:04 PM MAGNETIC TESTING TECHNICIAN [facility] Comment:REFERENCE RANGE NOT ESTABLISHED LDL/HDL 1.3 12/28/2018 5:04 PM MAGNETIC TESTING TECHNICIAN [facility] Comment:REFERENCE RANGE NOT ESTABLISHED NON HDL CHOLESTEROL 115 MG/DL 12/28/2018 5:04 PM MAGNETIC TESTING TECHNICIAN [facility] Comment:REFERENCE RANGE NOT ESTABLISHED 12/28/2018 5:09 AM MAGNETIC TESTING TECHNICIAN Pineda Zarate MD LABORATORY Final Resul t [facility] [address] [place] [address], [id number] from Last 3 Months or Most Recently Relevant to Health Maintenance Insurance MEDICARE [facility] MEDICARE MEDICARE LIFE Advance Directives * Full Code (Latest Code Status on File) Date Activated Date Inactivated Comments 12/28/2018 12:47 AM 12/29/2018 11:42 AM Care Teams Carpet Layer Helper Relationship Specialty Start Date End Date Perry Ybarra MD [address] [place] [address] PCP - General INTERNAL MEDICINE 12/27/18 Perry Ybarra MD [address] [place] [address] INTERNAL MEDICINE 05/19/18 Davy Diamond MD [address] [place] [address] CARDIOVASCULAR DISEASE 10/30/15
--- NOTE | 2024-10-16 15:10 | ECG_ITS ---
Test Date: 2024-10-16 15:18:08 Measurements Intervals [place] Rate: 50 P: 81 CT: 232 QRS: 74 QRSD: 87 T: 70 QT: 408 QTc: 374 Interpretive Statements SINUS BRADYCARDIA WITH FIRST DEGREE AV BLOCK SEPTAL MYOCARDIAL INFARCTION , PROBABLY OLD [40+ ms Q WAVE IN V1/V2] ABNORMAL ELECTROCARDIOGRAM No previous ECG available for comparison Electronically Signed On 10-18-2024 16:31:52 CDT by Grayson Cannon M.D.
== END 2024-10-16 15:04 | disposition home or self-care (01) ==
LOC: CHSCARD 15:06
PROVIDERS: PCP Internal Medicine; Visit Provider Internal Medicine Cardiovascular Disease
DX: I25.10 Atherosclerotic heart disease of native coronary artery without angina pectoris (principal); R00.1 Bradycardia, unspecified; I44.0 Atrioventricular block, first degree; I21.9 Acute myocardial infarction, unspecified; R94.31 Abnormal electrocardiogram [ECG] [EKG]
CPT/HCPCS: 93005

== ENCOUNTER 2024-10-25 12:44 | Outpatient (CLI) | payer MEDICARE, SELFPAY ==
--- OUTSIDE RECORDS SUMMARY | 2024-10-25 12:50 | XMS_ITS | Patient Health Record ---
Author Organization [facility] Address [address] [place], [place] [id number] Care Team Providers Care Terry Cloth Cutter Hand Name Role Phone RUDOLPH DIANE Unavailable [phone] Tate Perry Unavailable Unavailable Reason For Referral No Information Plan Of Treatment No Information Insurance Providers Payer Name Payer Address Payer Phone Subscriber Number Group Number Insured Name Patient Relationship to Insured Coverage Start Date Coverage End Date Medicare Part B [place] [address] [facility] [address] [id number] SATHISH PRYOR Self - patient is the insured [facility] Insurance [address] [address] [place] [address] [id number] SATHISH PRYOR Self - patient is the insured [facility] [address] [place], [place] [phone] [id number] SATHISH PRYOR Self - patient is the insured
== END 2024-10-25 12:45 | disposition home or self-care (01) ==
PROVIDERS: PCP Internal Medicine; Visit Provider Internal Medicine Cardiovascular Disease
DX: J43.9 Emphysema, unspecified (principal)
CPT/HCPCS: 94060; 94726; 94729

== ENCOUNTER 2024-12-05 12:46 | Outpatient (CLI) | payer MEDICARE, SELFPAY ==
--- NOTE | 2024-12-05 12:49 | ECHO_ITS ---
Patient Info Name: An Singh Age: 74 years : 1950 Gender: Female Ht: 66 in Wt: 121 lbs BSA: 1.59 m2 HR: 50 bpm BP: 140 / 84 mmHg Technical Quality: Fair Exam Date: 12/05/2024 12:52 PM Patient Status: O Admit Date: 12/05/2024 Exam Type: CA echo doppler color flow Complete two-dimensional, color flow and Doppler transthoracic echocardiogram is performed. Agricultural Engineering Technician: Nicole Valverde Attending Provider: Long Castellano DO Summary 1. Complete two-dimensional, color flow and Doppler transthoracic echocardiogram is performed. 2. Left ventricular chamber dimension is normal. 3. Left ventricular systolic function is normal, estimated at 65-70. 4. The left ventricular diastolic function is grade I diastolic dysfunction. 5. E/e' 11 is mildly elevated. 6. There is moderate aortic valve sclerosis. Left Ventricle E/e' 11 is mildly elevated. Left ventricular chamber dimension is normal. Left ventricular systolic function is normal, estimated at 65-70. The left ventricular diastolic function is grade I diastolic dysfunction. Right Ventricle Right ventricular chamber dimension is normal. Right ventricular systolic function is normal and with normal TAPSE 1.9 cm. Left Atria Left atrial chamber dimension is normal. Right Atria Right atrial chamber dimension is normal. Aortic Valve The aortic valve is trileaflet. There is moderate aortic valve sclerosis. There is no aortic valve stenosis. There is no aortic valve regurgitation. Pulmonic Valve There is no pulmonic regurgitation. Mitral Valve There is no mitral valve stenosis. There is no mitral valve regurgitation. Tricuspid Valve There is no tricuspid valve regurgitation. Pericardium/Pleural There is no pericardial effusion. Inferior Vena Cava Normal inferior vena cava with >50% collapse upon inspiration consistent with normal right atrial pressure, 5 mmHg. Aorta The aortic root size at the sinus of Valsalva is normal. Left Ventricular Outflow Tract Name Value Normal LVOT 2D LVOT Diameter 2.0 cm LVOT Doppler LVOT Peak Velocity 78 cm/s LVOT Peak Gradient 2 mmHg LVOT Mean Gradient 1 mmHg LVOT VTI 21 cm LVOT Stroke Volume 64 ml LVOT CO 3.2 l/min LVOT CI 2.0 l/min/m2 Pulmonic Valve Name Value Normal RVOT Doppler RVOT Peak Velocity 62 cm/s RVOT Peak Gradient 2 mmHg PV Doppler PV Peak Velocity 87 cm/s PV Peak Gradient 3 mmHg Mitral Valve Name Value Normal MV Diastolic Function MV E Peak Velocity 84 cm/s MV A Peak Velocity 89 cm/s MV E/A 0.9 MV Decel Time (PW) 252 ms MV Annular TDI MV E/e' (Septal) 13.0 MV E/e' (Lateral) 9.7 MV E/e' (Average) 11.3 Tricuspid Valve Name Value Normal Estimated PAP/RSVP RA Pressure 5 mmHg <=5 Aortic Valve Name Value Normal AV Doppler AV Peak Velocity 113 cm/s AV Peak Gradient 5 mmHg AV Area (Cont Eq Migue) 2.1 cm2 AV DI (Migue) 0.69 AV Regurgitation 2D LVOT Area 3.1 cm2 Ventricles Name Value Normal LV Dimensions 2D/MM IVS Diastolic Thickness (2D) 0.8 cm 0.6-1.0 LVID Diastole (2D) 3.6 cm 3.8-5.2 LVIW Diastolic Thickness (2D) 1.0 cm 0.6-0.9 LVID Systole (2D) 2.6 cm 2.2-3.5 LVOT Diameter 2.0 cm LV Mass (2D Cubed) 92.55 g 67.00-162.00 LV Mass Index (2D Cubed) 58 g/m2 43-95 Relative Wall Thickness (2D) 0.57 <=0.42 LV Fractional Shortening/Ejection Fraction 2D/MM LV Fractional Shortening (2D) 27 % 27-45 LV EF (2D Teichholz) 53 % LV Diastolic Volume (4C MOD) 65 ml LV EF (4C MOD) 65 % LV Diastolic Volume (2C MOD) 59 ml LV EF (2C MOD) 73 % LV Diastolic Volume (BP MOD) 64 ml 46-106 LV Diastolic Volume Index (BP MOD) 40 ml/m2 29-61 LV Systolic Volume (BP MOD) 20 ml 14-42 LV Systolic Volume Index (BP MOD) 13 ml/m2 8-24 LV EF (BP MOD) 68 % 54-74 LV Diastolic Length (4C) 7.2 cm LV Systolic Length (4C) 5.4 cm LV Stroke Volume (4C MOD) 42 ml Atria Name Value Normal LA Dimensions LA Volume (4C A-L) 21 ml LA Volume (BP A-L) 20 ml RA Dimensions RA Systolic Major [place] Length (4C) 3.8 cm 2.2-2.8 RA Area (4C) 7.4 cm2 <=18.0 Report Signatures
--- OUTSIDE RECORDS SUMMARY | 2024-12-05 14:25 | XMS_ITS | Clinical Summary ---
Author Organization [facility] Address [address] [place] [address] Care Team Providers Care Kiln Loader Name Role Phone Perry Ybarra MD Unavailable [phone] Davy Diamond MD Unavailable [phone] Perry Ybarra MD Primary Care Provider [phone] Allergies No known active allergies Medications aspirin [...] CAD (coronary artery disease) Anxiety Adjustment disorder Family History Medical History Relation Comments Hypertension [...] 36.8 C (98.2 F) 12/29/2018 8:41 AM FLYER MAKER Respiratory Rate 18 12/29/2018 8:41 AM FLYER MAKER Oxygen Saturation 95% 07/27/2024 9:20 AM CDT Inhaled Oxygen Concentration - - Weight 55.5 kg (122 lb 4.8 oz) 07/27/2024 9:20 A M CDT Height 167.6 cm (5' 6) 12/28/2018 1:00 AM FLYER MAKER Body Mass Index 19.74 12/28/2018 1:00 AM FLYER MAKER Plan of Treatment Health Maintenance Due Date Last Done Comments ASCVD Statin 1950 Colorectal Cancer Screening Colonoscopy (10 Years) 1950 Hepatitis C 06/26/1967 Zoster Vaccines (2 of 3) 12/30/2013 11/04/2013 Annual Medicare Wellness Visit 2014 Dexa Scan (General) 2014 ASCVD LDL 12/29/2019 12/28/2018, 11/22/2004 PHQ-2 (Physician May) 02/09/2024 COVID-19 Vaccine ( season) 2024 12/07/2023, 12/11/2022, 07/16/2022, Additional history exists Influenza Adult (#1) 2024 12/07/2023, 11/11/2019, 11/11/2017, Additional history exists DTaP, Tdap and Td Vaccines (2 - Td or Tdap) 09/09/2032 09/09/2022 Pneumococcal Vaccine: 50+ Years Completed 11/25/2016, 11/23/2016, 12/23/2015, Additional history exists RSV Immunization or 60+ Years Completed 12/11/2022 Hepatitis A Vaccines Aged Out No long er eligible based on patient's age to complete this topic Meningococcal B Vaccine Aged Out No l [...] Comments LIPID PANEL Routine 12/28/2018 5:09 AM FLYER MAKER from Last 3 Months or Most Recently Relevant to Health Maintenance Results * LIPID PANEL (12/28/2018 5:09 AM FLYER MAKER) CHOLESTEROL 188 MG/DL 12/28/2018 5:04 PM [facility] Comment:DESIRABLE: <200 TRIGLYCERIDES 85 MG/DL 12/28/2018 5:04 PM [facility] Comment:<150 NORMAL HDL 73 >49 MG/DL 12/28/2018 5:04 PM [facility] LDL (CALCULATED) 98 MG/DL 12/29/19 5:04 PM [facility] Comment:<100 OPTIMAL VLDL CALCULATION 17 MG/DL 12/29/19 5:04 PM [facility] Comment:REFERENCE RANGE NOT ESTABLISHED CHOL/HDL RATIO 2.6 12/28/2018 5:04 PM [facility] Comment:REFERENCE RANGE NOT ESTABLISHED LDL/HDL 1.3 12/28/2018 5:04 PM [facility] Comment:REFERENCE RANGE NOT ESTABLISHED NON HDL CHOLESTEROL 115 MG/DL 12/28/2018 5:04 PM [facility] Comment:REFERENCE RANGE NOT ESTABLISHED 12/28/2018 5:09 AM FLYER MAKER Pineda Zarate MD LABORATORY Final Resul t [facility] [address] [place] [address], [place] [phone] [id number] from Last 3 Months or Most Recently Relevant to Health Maintenance Insurance MEDICARE [employer] MEDICARE MEDICARE Advance Directives * Full Code (Latest Code Status on File) Date Activated Date Inactivated Comments 12/28/2018 12:47 AM 12/29/2018 11:42 AM Care Teams Kiln Loader Relationship Specialty Start Date End Date Perry Ybarra MD [address] [place] [address] PCP - General INTERNAL MEDICINE 12/27/18 Perry Ybarra MD [address] [place] [address] INTERNAL MEDICINE 05/19/18 Davy Diamond MD [address] [place] [address] CARDIOVASCULAR DISEASE 10/30/15
--- OUTSIDE RECORDS SUMMARY | 2024-12-05 14:25 | XMS_ITS | Patient Health Record ---
Author Organization [facility] Address [address] [place], [place] [id number] Care Team Providers Care Automatic Tire Tester Name Role Phone RUDOLPH DIANE Unavailable [phone] TatePerry perez Unavailable Unavailable Reason For Referral No Information Social History Social History Additional Details Category Social Info Options Details Migrated Social History Migrated Social History Smoking Status : Current every day smoker , History of tobacco use : Current every day smoker Plan Of Treatment No Information Insurance Providers Payer Name Payer Address Payer Phone Subscriber Number Group Number Insured Name Patient Relationship to Insured Coverage Start Date Coverage End Date Medicare Part [place] [address] [facility] [place] [address] [id number] SATHISH PRYOR Self - patient is the insured [facility] Insurance [address] [address] [place] [address] [id number] SATHISH PRYOR Self - patient is the insured [facility] [address] [place], [place] [id number] SATHISH PRYOR Self - patient is the insured
== END 2024-12-05 12:47 | disposition home or self-care (01) ==
LOC: CHSIMG 12:47
PROVIDERS: PCP Internal Medicine; Visit Provider Internal Medicine Cardiovascular Disease
DX: R06.09 Other forms of dyspnea (principal); I70.0 Atherosclerosis of aorta
CPT/HCPCS: 93306